=== PATIENT | male | born 1960 | race Two or more races ===

== ENCOUNTER → 2024-07-07 | Emergency (ER) | payer OTHER ==
[~2024-07-07] VITALS: Ht 152.4 cm; Wt 86.2 kg
[~2024-07-07] MED LIST: BACTRIM DS TAB1 EACH PO; FAMOTIDINE/PF 20 MG/2 ML VIAL IV ONE; FAMOTIDINE/PF 20 MG/2 ML VIAL ONE; LISINOPRIL5 MG; NABUMETONE750 MG; NAPROXEN500 MG
[2024-07-07 17:40] LABS: HEMATOCRIT 27.6 % (39.0-48.0); HEMOGLOBIN 9.5 g/dL (13-16.00); MEAN CELL VOLUME 90.9 fL (80.0-100.00); MEAN CORPUSCULAR HEMOGLOBIN 31.4 pg (27.00-32.0); MEAN CORPUSCULAR HGB CONC 34.5 g/dl (32.0-36.0); PLATELET COUNT 253 K/uL (150-450); RED BLOOD COUNT 3.03 M/uL (4.00-6.00); RED CELL DISTRIBUTION WIDTH 14.2 % (11.5-14.5)
[2024-07-07 17:40] LABS: PH,URINE 5.5 (5.0-8.0); URINE APPEARANCE Clear; URINE BILIRRUBIN Small (NEGATIVE); URINE BLOOD Negative; URINE COLOR Orange; URINE GLUCOSE Negative (NEGATIVE); URINE KETONE 15 (NEGATIVE); URINE LEUKOCYTE Trace; URINE NITRATE Positive; URINE PROTEIN Negative (NEGATIVE)
[2024-07-07 17:44] LABS: URINE BACTERIA 7.3 uL (0.0-1933); URINE EPITHELIAL CELLS 7.2 uL (0.0-38.8); URINE RBC 5.4 uL (0.0-20.8); URINE WBC 3.4 uL (0.0-23.2)
[2024-07-07 18:02] LABS: INR 1.04; PARTIAL THROMBOPLASTIN TIME 26.3 SECONDS (22.0-34.0); PROTHROMBIN TIME 11.3 SECONDS (9.0-11.5)
[2024-07-07 18:11] LABS: BILIRUBIN TOTAL 4.3 mg/dL (0.3-1.2); CALCIUM 8.8 mg/dL (8.5-10.1); CREATININE SERUM 0.89 mg/dL (0.70-1.30); GFR 85.52; GLOBULINA 3.3 G/DL (2.4-3.5); POTASSIUM 4.2 mEq/L (3.5-5.1); TOTAL PROTEIN 6.3 gm/dL (6.4-8.2)
[2024-07-07 18:21] LABS: URINE CAST 0.44 uL (0.0-1.40)
[2024-07-07 19:24] LABS: AMYLASE 39 U/L (25-115); LIPASE 23 U/L (13-75)
== END | disposition home or self-care (01) ==
LOC: ER 13:25
PROVIDERS: General Practice
DX: N39.0 Urinary tract infection, site not specified (principal); R31.9 Hematuria, unspecified; R60.0 Localized edema; R10.13 Epigastric pain; I10 Essential (primary) hypertension; K76.0 Fatty (change of) liver, not elsewhere classified; N45.3 Epididymo-orchitis
CPT/HCPCS: 36415; 76700; 76870; 93005; 96365; 99284; J3490